=== PATIENT | male | born 1995 | race African-American/Black ===

== ENCOUNTER 2021-01-18 11:45 | Emergency (ER) | payer SELFPAY ==
[2021-01-18] MEDS ORDERED: Sodium Bicarb 50 MEQ/50 ML Abboject 8.4% SYRINGE ONE ×3 (11:51→12:07)
[2021-01-18] MEDS ORDERED: EPINEPHrine 1 MG/10 ML Abboject SYRINGE ONE (11:51)
[2021-01-18] MEDS ORDERED: Calcium Chloride 1 GM/10 ML Abboject SYRINGE ONE (11:51)
[2021-01-18] MEDS ORDERED: EPINEPHrine 1 MG/ML AMP ONE (11:57)
[2021-01-18 12:10] LABS: Hemoglobin 15.3 g/dL (14.0-18.0); Mean Corpuscular HGB CONC 28.8 g/dL (32.0-36.0); Mean Corpuscular Hemoglobin 26.4 pg (27.0-31.0); Mean Corpuscular Volume 91.8 fL (78.0-98.0); RBC Distribution Width 12.6 % (11.5-14.5); Red Blood Cell (RBC) Count 5.78 mill/uL (4.70-6.10); White Blood Cell (WBC) Count 12.4 thou/uL (4.8-10.8)
[2021-01-18 12:31] LABS: ALT (SGPT) 277 U/L (8-55); AST (SGOT) 244 U/L (5-34); Albumin 4.3 g/dL (3.5-5.0); Alkaline Phosphatase 138 U/L (40-110); BUN (Urea Nitrogen) 12 mg/dL (8.9-20.6); Bilirubin, Total 0.2 mg/dL (0.2-1.2); Calc. Creatinine Clearance 0 mL/min (70-130); Calcium 11.4 mg/dL (7.8-10.44); Chloride 102 mmol/L (98-107); Globulin 3.8 g/dL (2.4-3.5); Protein, Total 8.1 g/dL (6.0-8.3); Sodium 138 mmol/L (136-145)
[2021-01-18 12:40] LABS: Band 8 % (5-11); Hypochromia SLIGHT = 6-15 cells (100X) (0-5/hpf); Lymphocytes 38 % (21-51); MDiff Complete? YES; Mean Platelet Volume 8.9 fL (7.4-10.4); Monocytes 7 % (0-10); Neutrophil 32 % (42-75); Platelet Clumps MODERATE; Platelet Morphology Comment PLT clumps seen-ADEQ; Polychromasia SLIGHT = 2-3 cells (100X) (0-2/hpf); Reactive Lymphocytes 15 % (0-10)
[2021-01-18 12:42] LABS: Carbon Dioxide 8 mmol/L (22-29); Glucose 561 mg/dL (70-105); Potassium Greater than 9.5 mmol/L (3.5-5.1)
== END 2021-01-18 12:09 | disposition expired ==
LOC: EDBD 11:45 → ERS 11:45
DX: T75.4XXA Electrocution, initial encounter (principal); I46.9 Cardiac arrest, cause unspecified
CPT/HCPCS: 31500; 36556; 80053; 83605; 84484; 85025; 86850; 86900; 86901; 92950; 96374; 96375; J0171